=== PATIENT | female | born 1985 | race Caucasian/White ===

== ENCOUNTER 2017-05-07 21:58 | Inpatient (IN) | payer OTHER ==
[~2017-05-07] VITALS: Ht 154.9 cm; Wt 106.1 kg
[~2017-05-07 21:58] MED LIST: SULF1TAB7 PO
[2017-05-08 00:33] LABS: Mean Corpuscular Hemoglobin 30.3 pg (27.0-35.0)
[2017-05-08] MEDS ORDERED: Sodium Chloride LOK Flush 10 mL Syringe IVFLUSH PRN ×2 (01:25)
[2017-05-08] MEDS ORDERED: Ondansetron 2 mg/mL 2 mL Inj IVPUSH PRN (01:25)
[2017-05-08] MEDS ORDERED: Methylergonovine 0.2 mg/mL Inj IM PRN (01:25)
[2017-05-08] MEDS ORDERED: diphenhydrAMINE 50 mg Capsule PO PRN (01:25)
[2017-05-08] MEDS ORDERED: hydrALAZINE 20 mg/mL Inj IVPUSH PRN (01:25)
[2017-05-08] MEDS ORDERED: Labetalol 5 mg/mL 20 mL Inj IV PRN (01:25)
[2017-05-08] MEDS ORDERED: Hemorrhage Kit, Post Partum XX ONE (01:25)
[2017-05-08] MEDS ORDERED: Oxytocin 10 Unit/mL Inj IM PRN (01:25)
[2017-05-08] MEDS ORDERED: Oxytocin 30 Units/500 mL LR 30 UNITS in IV Premix 1 EACH IV PRN (01:25)
[2017-05-08] MEDS ORDERED: Carboprost 250 mCg/mL Inj IM PRN (01:25)
[2017-05-08] MEDS ORDERED: fentaNYL-PF 50 mCg/mL 2 mL Inj IVPUSH PRN (01:25)
--- NOTE | 2017-05-08 08:53 | HP ---
[address] [address] HISTORY AND PHYSICAL PATIENT: ALEXANDRO MARRERO : 1985 MR#: [id number] ADMIT: 05/08/2017 JOB ID: [id number] CHIEF COMPLAINT: "My legs just got bigger." HISTORY OF PRESENT ILLNESS: A 31-year-old, 1, para 0, with an EDC of May 28, 2017, based on a well-tracked LMP of August 21, 2016, and concordant 20-week ultrasound, presents at 37 weeks gestation. Yesterday, she noted a dramatic increase in her leg edema. She has been followed for borderline blood pressures and some edema, with normal labs to date. My colleague on-call for our group ordered [facility] labs, which showed an abnormal ginkqiu-tk-oahbxvkcbj ratio of 0.7, a platelet count slightly low at 98,000, and an initial blood pressure quite elevated, verbally reported to me in the 160s over 100s, with repeat of 154/91. She had a mild headache at the time. She received 100 mg oral labetalol, and I was then contacted. At that point, I recommended admission and induction, given that she is now at 37 weeks gestation with criteria for preeclampsia. She reports her previous mild headache is nearly resolved. She is having more discomfort and pelvic pressure since placement of Cervidil tape at approximately 3 a.m. this morning. She is having occasional contractions. No bloody show. Her initial cervical examination showed her to be 2 cm, -3 station, 50% effaced, for a Roberts score of 3. ISSUES: 1. Transfer of care to myself at 20 weeks from [facility]. 2. Excess weight. 3. Rh negative. 4. Borderline blood pressures since about 34 weeks. She has been followed closely with twice weekly office visits/NSTs and labs. ALLERGIES: None known. CURRENT MEDICATIONS: vitamins 1 tablet daily. SOCIAL HISTORY: She is , here with her supportive . Is a nonsmoker. Drinks no alcohol while . Has previously denied recreational drug use. 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 PAST GYNECOLOGIC HISTORY: 1, para 0. LABORATORY DATA: Blood type B negative, rubella immune, serology not reactive, hepatitis B surface antigen and HIV test negative. Hematocrit 36.4 at 28 weeks. Her initial antibody screen was negative. A repeat at 28 weeks was positive for anti-D, too weak to titer, thought related to her RhoGAM injection. Pap was normal in September of this year. An A1c at that time was 5.5, and her gonorrhea and Chlamydia cultures were negative, as was a urine culture. A first trimester genetic screen was normal, and showed male karyotype. A 28 week glucose tolerance test showed a fasting of 82, a one hour of 161, and a two hour of 144. REVIEW OF SYSTEMS: Patient denies shortness of breath, chest pain, double vision. She does have some abdominal discomfort, mainly from contractions. PHYSICAL EXAMINATION: Most recent blood pressure at 7:30 this morning 143/95. Before that, it was 129/69, and overnight, they appeared to be in the 120s to 130s over 80s. She was afebrile at 1:30 this morning. She is a gravid, over-nourished woman, somewhat tired-appearing, moderately edematous in the face, hands, and feet, but not anasarcic. Lungs are clear. Cardiovascular is regular, without gallop or murmur. Abdomen is gravid. Roderick's are not repeated. In the office, fetus felt in vertex position. Cervical examination is not performed as she has cervical ripening tape in place. Lower extremities show 2+ pitting edema to the mid calf. No clonus. 3+ patellar reflexes, which have been the norm for her. She is tired, but otherwise alert and conversant. LABORATORY VALUES: Show a white count of 13.4, hemoglobin 12.1, hematocrit 35.2, platelets 98,000. Qpudgar-hr-crvguxfgyy ratio is 0.70. BUN 11, creatinine 0.5. Uric acid 6.3. AST 14, ALT 10. Blood type B negative. Antibody screen positive, again for anti-D. ASSESSMENT: 1. Gravid, now at 37-1/7 weeks. 2. Group B Streptococcus negative. 3. Preeclampsia, based on findings of elevated blood pressure and an abnormal vmrjacv-bf-rwdvarxxsh ratio. 4. Mild thrombocytopenia. Unclear if related to her preeclampsia. 5. Roberts score of 3, based on nurse exam last night. PLAN: Given that she is now term, I have recommended moving towards delivery. She has already received overnight Cervidil tape around 3 a.m. This will be left in 12 hours, and then re-examine cervix, with further intervention (a Downey balloon versus misoprostol versus oxytocin augmentation) to be determined based on clinical response. She has p.r.n. labetalol and hydralazine in place, but has not needed a dose since admission. I am not seeing severe symptoms to warrant magnesium prophylaxis at this point. I will discuss the case with [facility] on-call supervisor carbon electrodes given the higher acuity/complexity. Patient and were updated at bedside. Questions answered.
--- NOTE | 2017-05-08 19:53 | PROG NOTE ---
[address] [address] PROGRESS NOTE PATIENT: ALEXANDRO MARRERO : 1985 MR#: [id number] ADMIT: 05/08/2017 JOB ID: [id number] DATE: 05/08/2017 Patient has received Cervidil, removed this afternoon. She has had some occasional contractions but nothing regular. She did find that it made her quite vaginally sensitive/edematous. Vital signs show her blood pressures over the past few hours in the 130s over 70s. Earlier this afternoon, it was more elevated in the 140s. She has not received any labetalol. She reports her headache is essentially resolved. heart tracing shows a baseline in the 140s to 150s with numerous accelerations at least 15 beats by 15 seconds and no concerning decelerations. Category one tracing. Tocometer shows mild contractions every 2 minutes or so, but they really palpate fairly minimally. ASSESSMENT: 1. Gravid at 37 and 1/7 weeks. 2. Group B strep negative. 3. Preeclampsia with elevated blood pressure and an elevated protein to creatinine ratio. 4. Thrombocytopenia with platelets of 98,000, unclear if related to hypertension or simply gestational thrombocytopenia. 5. Blood type B negative. PLAN: Discussed option of Downey balloon versus additional cervical ripening with medication. She preferred to try Downey balloon. The patient placed in stirrups and a speculum inserted. Due to the patient's size, it was very difficult to get good visualization of the very posterior cervix with the vaginal gunn frequently collapsing in from the side. Patient discomfort also limited my ability to proceed with the procedure. Manual exam showed her cervix to be 1 cm, -3 station, 50% effaced. Procedure was abandoned when the patient was not able to tolerate it and I was not able to cannulate the cervix. I recommended either misoprostol vaginal tablets or Cervidil insert overnight again followed by oxytocin tomorrow depending on clinical response. She agrees with the latter. Plan updated with the patient. Anesthesia and I spoke; will check platelets when she enters more active labor to see if she can have an epidural. Otherwise plan for platelet check tomorrow if not in active labor to see that they are stable. LILO
[2017-05-08 20:40] LABS: Mean Corpuscular Hemoglobin 30.6 pg (27.0-35.0); Mean Corpuscular Volume 88.6 fL (81-100)
[2017-05-09] MEDS ORDERED: Oxytocin 30 Units/500 mL LR 30 UNITS in IV Premix 1 EACH IV PRN (09:40)
--- NOTE | 2017-05-09 10:07 | PROG NOTE ---
[address] [address] PROGRESS NOTE PATIENT: ALEXANDRO MARRERO : 1985 MR#: [id number] ADMIT: 05/08/2017 JOB ID: [id number] DATE: 05/09/2017 SUBJECTIVE: Overnight patient has received Cervidil ripening ribbon with no change in symptoms. Her cervical examination this morning is essentially unchanged and detailed below. Her platelets have improved to 116,000. Her blood pressures are generally running in the 130s/70s-80s, but sometimes spike higher briefly and then promptly return to normal. She has no new symptoms. DATE: PHYSICAL EXAMINATION: Vitals are reviewed. Cervical examination shows her to be -3 station. Vertex position. 1 cm, 70% effaced, mid position. Cervix of medium consistency. ASSESSMENT: 1. Gravid 37 and 2/7 weeks. 2. Preeclampsia with a combination of elevated blood pressure and an elevated/abnormal protein to creatinine ratio. 3. Mild thrombocytopenia now improved although somewhat lower than her baseline in the 130s. 4. GBS negative. PLAN: The patient has now received a day and a half of cervical ripening. I do not feel additional ripening is indicated, I would like to proceed with oxytocin induction. Case discussed with Dr. Orellana law firm consultant for [employer]. Risks and benefits have been reviewed several times with the patient and her spouse. However, given her rising blood pressures, I feel moving towards delivery is important. Start oxytocin at 2 milliunits and increase by 2 every 30 minutes per protocol. If the patient were not to have any clinical response to oxytocin by late tonight or tomorrow, I would consider asking for assistance from [employer] with placement of a Downey balloon catheter as I was unable to do so yesterday in her cervix. Hopefully she will have a good response with oxytocin. She does want an epidural when she is in more active labor. LILO
[2017-05-09] MEDS: Lactated Ringer's 1,000 ML IV PRN ×2 (11:14→18:13)
[2017-05-09 19:03] LABS: Mean Corpuscular Hemoglobin 30.3 pg (27.0-35.0); Mean Corpuscular Volume 89.1 fL (81-100)
[2017-05-09] MEDS ORDERED: Lactated Ringer's 1,000 ML IV SCH (20:00)
[2017-05-09] MEDS ORDERED: EPHEDrine Sulfate 50 mg/mL Inj IVPUSH PRN (20:00)
[2017-05-09] MEDS ORDERED: Atropine 1 mg/10 mL (Code) Syringe IVPUSH PRN (20:00)
[2017-05-09] MEDS ORDERED: fentaNYL 2 mCg/mL-Bupiv 0.125% 100 ML EPIDURAL SCH (20:00)
[2017-05-09] MEDS ORDERED: Ondansetron 2 mg/mL 2 mL Inj IVPUSH PRN (20:00)
[2017-05-09] MEDS ORDERED: Lactated Ringer's 500 ML IV ONE (20:00)
--- NOTE | 2017-05-09 20:05 | PCM.HPANE ---
Patient Data Surgeon Admitting Provider:Aryan Meléndez MD Attending Provider:Aryan Meléndez MD Primary Care Physician:Aryan Meléndez MD Other Provider:Ritu Jiménezingham Anesthesia Reason for Visit Term Labor TERM LABOR Ht/WT & BMI Body Mass Index Allergies Coded Allergies: No Known Allergies (Verified Allergy, Unknown, 03/23/16) Past Anesthesia History Anesthesia History: Denies:: Abnormal Airway, Anesthesia Reactions, Difficult Intubation, Fam Anesthesia Reaction, Fam Malignant Hypertherm, Malignant Hyperthermia Diabetes History Hx Diabetes?: No Medications Active Scripts Sulfamethoxazole/Trimeth 800-160 mg (Bactrim DS)1 Each Tablet1 Tablet PO BID # 20 TABLET Ref 0 Prov:Jessica Luke MD 03/23/16 History History of ENT Problems?: No HEENT History: Denies:: Abnormal Airway Cataracts Difficult Intubation Dysphagia Glaucoma Hearing Problem Sinus Problem TMJ Denture Type: None Teeth Condition: Within Normal Limits Hx of Heart Problems?: Yes Cardiovascular History: Denies:: Congestive Heart Failure Hypertension Other History/Comments Pre eclampsia with this admitted for induction of labor at 37 weeks, now in labor and wishes an epidural Hx of Respiratory Problem?: No Respiratory History: Denies:: Tuberculosis Hx Neurologic Problems?: No Hx of GI Problems?: No Hx of Problems?: No Female Hx: Positive for:: Currently Hx Musculoskeletal Problems?: No Hx of Psycho/Social Problems?: No Hx Surgeries?: No Hx Any Other Health Problems?: No Hx Diabetes: No Hx Alcohol Use: YesHx Substance Use: No Smoking Status: Never Smoker Stop/Bang Treated for Sleep Apnea?: No Do You Have a CPAP Machine?: No Risk Assessment Category Category 1A: Patient has history of documented sleep apnea, and HAS NOT received any narcotic, sedative or anesthesia administration during this stay. Category 1B: Patient has history of documented sleep apnea, and HAS received any narcotic , sedative or anesthesia administration during this stay Category 2: Patient has SUSPECTED Obstructive Sleep Apnea, and HAS received any narcotic , sedative or anesthesia administration during this stay. Category 3: Patient has SUSPECTED Obstructive Sleep Apnea and HAS NOT received narcotic, sedative or anesthesia administration during this stay. Category 4: Outpatient in Procedural Areas with known sleep apnea or who screen positive for High Risk via the STOP/BANG questionnaire. Exam Exam General Appearance: Alert, Oriented X3, Cooperative HEENT/AIRWAY: MP 2 Lungs: Clear to Auscultation Heart: Exam Unremarkable Meds/Labs/Diagnostics Admission Meds Current Medications Dinoprostone (Cervidil Vaginal Insert) 10 mg ONCE ONCE VAGINAL Last administered on 05/08/17t 21:06; Start 05/08/17 at 21:00; Stop 05/08/17 at 21:01 ; Status DC Labs Test 05/08/17 00:29 05/08/17 00:30 05/09/17 18:53 Urine Random Creatinine 40mg/dL (16-392) Urine Random Total Protein 28mg/dL (0-15) Urine Protein/Creatinine Ratio 0.70 (0-200) Hematology Comments White Blood Count 16.9th/mm3 (3.8-10.1) Red Blood Count 4.33mil/mm3 (3.90-5.20) Hemoglobin 13.1g/dL (12.0-15.6) Hematocrit 38.6% (35.0-46.0) Mean Corpuscular Volume 89.1fL (81-100) Mean Corpuscular Hemoglobin 30.3pg (27.0-35.0) Mean Corpuscular Hemoglobin Concent 33.9% (32.0-37.0) Red Cell Distribution Width 13.6% (12.3-15.4) Platelet Count 123bil/L (150-400) Blood Urea Nitrogen 11mg/dL (6-20) Creatinine 0.54mg/dL (0.57-1.00) Uric Acid 6.4mg/dL (2.6-7.2) Aspartate Amino Transf (AST/SGOT) 15U/L (0-50) Alanine Aminotransferase (ALT/SGPT) 9U/L (0-32) Plan Impression Patient chart reviewed, patient interviewed and anesthestic plan with risks, benefits, and alternatives discussed, and informed consent obtained. ASA Physical Status: ASA3 Severe Disease Anesthetic Plan: Epidural Bene/Risks/Altern/Consents: Yes HP Complete Prior to Induction: Yes Juan R Yi MD May 09, 2017 20:05
--- NOTE | 2017-05-09 20:48 | PCM.ANEP1 ---
Post Anesthesia PACU Phase 1 Assessment Anesthetic Administered: Epidural Level of Alertness: Awake, talking BAL's with Equal Strength: No Pain: No Pain Scale Score: 1 Nausea or Vomiting: No CV Function & Hydration Stable: Yes Airway Device: Oxygen Delivery: Room Air Lungs: Clear to Auscultation Dermatome Level: T10 (Umbilicus) PACU Phase 2 Assessment Complications: No Follow up Care: No Patient Instructions Provided: N/A Comments Complete pain relief with bolus, from Juan R James MD May 09, 2017 20:48
[2017-05-10] MEDS ORDERED: Sodium Chloride LOK Flush 10 mL Syringe IVFLUSH SCH (00:30)
[2017-05-10] MEDS ORDERED: Lactated Ringer's 1,000 ML IV SCH (01:11)
[2017-05-10] MEDS ORDERED: HYDROcodone-APAP 5-325 mg Tablet PO PRN (01:15)
[2017-05-10] MEDS ORDERED: Hemorrhage Kit, Post Partum XX ONE (01:15)
[2017-05-10] MEDS ORDERED: Methylergonovine 0.2 mg/mL Inj IM PRN (01:15)
[2017-05-10] MEDS ORDERED: Labetalol 5 mg/mL 20 mL Inj IV PRN (01:15)
[2017-05-10] MEDS ORDERED: Oxytocin 30 Units/500 mL LR 30 UNITS in IV Premix 1 EACH IV PRN (01:15)
[2017-05-10] MEDS ORDERED: hydrALAZINE 20 mg/mL Inj IVPUSH PRN (01:15)
[2017-05-10] MEDS ORDERED: Witch Hazel-Glycerin Pads TOPICAL PRN (01:15)
[2017-05-10] MEDS ORDERED: LANOlin HPA 7 Gm Ointment TOPICAL PRN (01:15)
[2017-05-10] MEDS ORDERED: Oxytocin 10 Unit/mL Inj IM PRN (01:15)
[2017-05-10] MEDS ORDERED: Benzocaine (Dermoplast) 20% 60 Gm Spray TOPICAL PRN (01:15)
[2017-05-10] MEDS ORDERED: Carboprost 250 mCg/mL Inj IM PRN (01:15)
--- NOTE | 2017-05-10 03:11 | OP ---
[address] [address] OPERATIVE REPORT PATIENT: ALEXANDRO MARRERO : 1985 MR#: [id number] ADMIT: 05/08/2017 JOB ID: [id number] DELIVERY NOTE: Date of delivery: 05/10/2017 Delivery position: GIGI. Delivery weight: 2911 grams Apgars: 7 and 8. Umbilical cord: Nuchal cord x1. Normal cord appearance, three vessel cord normal length. Placenta: Small normal with a central cord insertion. No evidence of retained fragments. EBL: 250 cc. Anesthesia: Epidural and lidocaine for repair. Lacerations: Second degree perineal. Complications: 1. Nuchal cord x1. 2. Torn cord in the process of trying to reduce it. 3. Second degree perineal laceration. 4. induced hypertension, prompting the induction. The patient felt a strong urge to push. She pushed for approximately 90 minutes. Head delivered. A nuchal cord was identified and as I was reducing it the cord tore. Because of this, patient was urged to then immediately push. There was no shoulder dystocia and the rest of the body delivered easily. Short umbilical cord stump was identified on the infant and immediately clamped to slow bleeding. Infant was then given to mother and nursing for additional stimulation and evaluation. Placenta delivered with gentle traction on the cord after a few more minutes. Cord blood was collected and sent prior to this. Perineum inspected and showed a second degree perineal laceration. IV oxytocin was started after delivery of the placenta and bleeding is slowing. Perineal tear repaired with 2-0 Vicryl after instilling lidocaine in typical fashion. Rectal exam afterwards showed an intact rectal sphincter. Sponge and needle counts are correct after delivery. The patient is stable and plans to breastfeed. Given her prior elevated blood pressures, I have written for p.r.n. labetalol and hydralazine. Note that her platelets improved with last value on 05/09 at 1853 of 123,000. Creatinine normal at 0.54. MTDD
[2017-05-10] MEDS: Multivit-Miner-Folic Acid-Iron Tablet PO SCH (09:30)
[2017-05-11 07:20] LABS: Mean Corpuscular Hemoglobin 30.5 pg (27.0-35.0); Mean Corpuscular Volume 90.8 fL (81-100)
[2017-05-11] MEDS: Multivit-Miner-Folic Acid-Iron Tablet PO SCH (08:59)
--- NOTE | 2017-05-11 11:01 | PCM.DIOB ---
Obstetrical Disch Instruction Date of Service: May 11, 2017 Dates of Hospitalization Date of Hospital Admission May 08, 2017 at 01:26 Providers Admitting Physician: Aryan Meléndez MD Primary Care Physician: Aryan Meléndez MD Attending Physician: Aryan Meléndez MD Discharge Diagnosis Problems: (1) induced hypertension, delivered, current hospitalization Status: Acute ICD Code: O13.4 (2) Vaginal delivery Status: Acute ICD Code: O80 Diet Discharge Diet: No restrictions Activity Discharge Activity-General: Pelvic Rest for 6 weeks, Balance rest and activity Dressing and Incisional Care Hygiene: May shower, Dermoplast spray, Witch Carin pads, Ice Follow Up Plan Follow-up Provider (F9): Aryan Meléndez MD Follow-up appointment: Weeks (6) Call your provider for: Fever or Chills, Shortness of breath, Heavy vaginal bleeding, Excessive constipation, Red painful breasts Aryan Meléndez MD May 11, 2017 11:01
[2017-05-11] MEDS ORDERED: PREN1TAB25 PO (11:02)
[2017-05-11] MEDS ORDERED: Acetaminophen PO (11:02)
[2017-05-11] MEDS ORDERED: DOCU-41 PO (11:02)
--- NOTE | 2017-05-11 12:02 | DIS ---
[address] [address] DISCHARGE SUMMARY PATIENT: ALEXANDRO MARRERO : 1985 MR#: [id number] ADMIT: 05/08/2017 JOB ID: [id number] DIS: DATE OF SERVICE: 05/11/2017 DATE OF ADMISSION: 05/08/2017 DISCHARGE DIAGNOSES: 1. Vaginal delivery to a 2911 g viable male. 2. Preeclampsia with elevated blood pressure and proteinuria. 3. Thrombocytopenia, thought gestational more then related to gestational hypertension. 4. Excess weight. 5. Rh negative. DISCHARGE MEDICATIONS: 1. vitamins 1 tablet daily. 2. Docusate sodium 100 mg p.o. b.i.d. p.r.n. constipation. 3. Acetaminophen 650 mg q.4 hours p.r.n. pain. ALLERGIES: None known. DISCHARGE INSTRUCTIONS: 1. Follow up at six weeks sooner if increased bleeding, fevers, shortness of breath, breast pain, excess constipation, or other problems. 2. Activity ad tiffani. Except for pelvic rest for six weeks due to a second-degree perineal tear. 3. Consider repeat platelet check if symptomatic, otherwise expect resolution of mild thrombocytopenia without symptoms. HOSPITAL COURSE: Patient is a now 31-year-old, 1, para 1, with an EDC of May 28 who presented at 37 weeks gestation with increased swelling and a mild headache. She was noted to be hypertensive with an elevated protein to creatinine ratio and so was admitted for cervical ripening due to dye the new diagnosis of preeclampsia. Her initial platelets returned slightly low at 98,000; improving to 123,000 on the day of discharge were 95,000. Her mild headache resolved. Patient received 2 cervical doses of dinoprostone ripening tape (Cervidil). She was then induced with oxytocin successfully. She received an epidural for pain control. She went on to have a relatively uncomplicated delivery of a viable male, complicated by a nuchal cord which tore during its reduction and a second-degree perineal tear. she is caring for her infant well. Her lochia is slowing. She denies excess bleeding. Surprisingly her repeat platelets have fallen back to 95,000, but she has no other symptoms to warrant emergent workup. Her discharge H and H is 10.6 and 31.6 down from an admit value of 12.1 and 35.2. Patient's blood pressures have significantly improved since delivery now in the 120s over 70s. I have encouraged her to call if recurrent PIH signs or symptoms. Otherwise she will follow up at six weeks. She has good social support. She did not receive a RhoGAM as her was also Rh negative.
[2017-05-11 12:19] VITALS: BP 131/74; PULSE 74; RESP 18
--- NOTE | 2017-05-19 10:34 | PATH ---
SURGICAL PATHOLOGY Attending Physician:Aryan Meléndez MD CASE STATUS: Signed Out PATIENT NAME: ALEXANDRO MARRERO PID: [id number] : 1985 DATE COLLECTED:05/10/2017 13:50 SPECIMEN: Placenta CLINICAL HISTORY: PIH 1. PLACENTA FINAL DIAGNOSIS: Placenta, Membranes, and Umbilical Cord: Three vessel umbilical cord without inflammation or other pathologic change. Normally formed membranes without inflammation or other pathologic change. Placenta (362 gram) with accessory lobe and no associated pathologic change; no evidence of maternal vasculopathy, villitis or thrombosis. ICD10: O13.3 GROSS DESCRIPTION: The specimen is received in formalin, labeled with the patient's name, and consists of an intact placenta which includes the placental disc (351 g, 17.7 x 15.7 x 2.2 cm), accessory lobe (11.3 g, 4.1 x 3.4 x 0.9 cm), membranes and umbilical cord (length-17.8 cm, diameter-1.2 x 1.0 cm). The membranes are ruptured 7.8 cm from the free edge of the placenta and are semitranslucent. The umbilical cord is attached 3.7 cm from the edge of the placenta and contains 3 vessels. The surface is smooth and shiny with no evidence of meconium identified. The maternal surface is dark maroon with normal cotyledon formation. The placental body is spongy with no nodules, masses, lesions, hematomas or infarcts identified. Section code: (A) edge of placenta with membranes, umbilical cord; (B-D) placenta, 3 full-thickness sections; (E) accessory lobe, 2 full-thickness sections. 05/14/17 ICD-9 CODES: CPT CODES: 1: 22031 Electronically Signed Out Aris Strickland MD, PhD [facility] Pathology [facility] [address], [place] [address] Technical component performed at [facility], [facility] [address], [place], [address]
== END 2017-05-11 13:01 | disposition home or self-care (01) | DRG 775 ==
LOC: FBCO 21:58 → FBC 05-08 01:26
PROVIDERS: ADMIT Family Medicine; ATTEND Family Medicine
PROC: 3E0P7GC Introduction of Other Therapeutic Substance into Female Reproductive, Via Natural or Artificial Opening (ICD-10-PCS; 2017-05-08)
PROC: 10E0XZZ Delivery of Products of Conception, External Approach (ICD-10-PCS; principal; 2017-05-10)
PROC: 0KQM0ZZ Repair Perineum Muscle, Open Approach (ICD-10-PCS; 2017-05-10)
DX: O13.4 Gestational [pregnancy-induced] hypertension without significant proteinuria, complicating childbirth (principal); Z68.41 Body mass index [BMI] 40.0-44.9, adult; Z37.0 Single live birth; O14.94 Unspecified pre-eclampsia, complicating childbirth; Z3A.37 37 weeks gestation of pregnancy; O69.81X0 Labor and delivery complicated by cord around neck, without compression, not applicable or unspecified; O70.1 Second degree perineal laceration during delivery; O99.214 Obesity complicating childbirth; E66.9 Obesity, unspecified